=== PATIENT | male | born 1950 | race Caucasian/White ===

== ENCOUNTER 2017-10-22 08:31 | Emergency (ER) | payer MEDICARE, OTHER ==
[~2017-10-22] VITALS: Ht 167.6 cm; Wt 90.7 kg
[~2017-10-22 08:31] MED LIST: AMLO10TA2 PO; ASPI81TA50 PO; CYCL-331 PO; HYDR-2678 PO; HYDR-2762 PO; HYDR-963 PO; HYDR-971 PO; LEVO88TA4 PO; LISI40TA PO; OMEP20TA8 PO; PRAV20TA2 PO; QUET25TA5 PO; RANI150C PO; TRAZ-90 PO
[2017-10-22 08:33] VITALS: BP 165/90
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
[2017-10-22] MEDS ORDERED: CYCL-331 PO (09:40)
== END 2017-10-22 09:57 | disposition home or self-care (01) ==
LOC: ER 08:31
DX: M54.5 Low back pain (principal); G89.29 Other chronic pain; I10 Essential (primary) hypertension; E78.00 Pure hypercholesterolemia, unspecified; E03.9 Hypothyroidism, unspecified; K21.9 Gastro-esophageal reflux disease without esophagitis; F17.200 Nicotine dependence, unspecified, uncomplicated; Z88.6 Allergy status to analgesic agent; Z88.5 Allergy status to narcotic agent; W19.XXXA Unspecified fall, initial encounter; Y93.89 Activity, other specified; Y99.8 Other external cause status; Y92.89 Other specified places as the place of occurrence of the external cause
CPT/HCPCS: 99283

== ENCOUNTER 2018-02-07 18:48 | Emergency (ER) | payer MEDICARE ==
[~2018-02-07] VITALS: Ht 175.3 cm; Wt 90.7 kg
[2018-02-07] MEDS ORDERED: PRED20TA PO (19:45)
--- NOTE | 2018-02-07 19:45 | PHYS DOC ---
Past History Past Medical History: Cancer, Hypertension Past Surgical History: Other Smoking: Less than 1pk/day Alcohol Use: None Drug Use: None Adult General Chief Complaint Chief Complaint: LOWER BACK PAIN OR INJURY HPI HPI Patient is a [age] year old [sex] who presents with [] Review of Systems Review of Systems Constitutional: Denies fever or chills [] Eyes: Denies change in visual acuity, redness, or eye pain [] HENT: Denies nasal congestion or sore throat [] Respiratory: Denies cough or shortness of breath [] Cardiovascular: No additional information not addressed in HPI [] GI: Denies abdominal pain, nausea, vomiting, bloody stools or diarrhea [] : Denies dysuria or hematuria [] Musculoskeletal: Denies back pain or joint pain [] Integument: Denies rash or skin lesions [] Neurologic: Denies headache, focal weakness or sensory changes [] Endocrine: Denies polyuria or polydipsia [] All other systems were reviewed and found to be within normal limits, except as documented in this note. Current Medications Current Medications Current Medications Medications (Trade) Dose Ordered Sig/[facility] Start Time Stop Time Status Last Admin Dose Admin Acetaminophen/ Codeine Phosphate (Starter Pack - Tylenol #3) 1 startpack 1X ONCE 02/07/18 19:45 02/07/18 19:46 UNV Ketorolac Tromethamine (Toradol) 60 mg 1X ONCE 02/07/18 19:45 02/07/18 19:46 UNV Methylprednisolone Sodium Succinate (SOLU-Medrol 125MG VIAL) 125 mg 1X ONCE 02/07/18 19:45 02/07/18 19:46 UNV Allergies Allergies Allergies Coded Allergies Type Severity Reaction Last Updated Verified tramadol Allergy Unknown Nausea 12/20/15 Yes ibuprofen Adverse Reaction Intermediate upset stomach 04/21/15 Yes morphine Adverse Reaction Mild nausea 04/21/15 Yes Physical Exam Physical Exam Constitutional: Well developed, well nourished, no acute distress, non-toxic appearance. [] HENT: Normocephalic, atraumatic, bilateral external ears normal, oropharynx moist, no oral exudates, nose normal. [] Eyes: PERRLA, EOMI, conjunctiva normal, no discharge. [] Neck: Normal range of motion, no tenderness, supple, no stridor. [] Cardiovascular:Heart rate regular rhythm, no murmur [] Lungs & Thorax: Bilateral breath sounds clear to auscultation [] Abdomen: Bowel sounds normal, soft, no tenderness, no masses, no pulsatile masses. [] Skin: Warm, dry, no erythema, no rash. [] Back: No tenderness, no CVA tenderness. [] Extremities: No tenderness, no cyanosis, no clubbing, ROM intact, no edema. [] Neurologic: Alert and oriented X 3, normal motor function, normal sensory function, no focal deficits noted. [] Psychologic: Affect normal, judgement normal, mood normal. [] Current Patient Data Vital Signs Vital Signs Date Time Temp Pulse Resp B/P (MAP) Pulse Ox O2 Delivery O2 Flow Rate FiO2 02/07/18 18:54 86 16 94 Room Air EKG EKG [] Radiology/Procedures Radiology/Procedures [] Course & Med Decision Making Course & Med Decision Making Pertinent Labs and Imaging studies reviewed. (See chart for details) [] Dragon Disclaimer Dragon Disclaimer This electronic medical record was generated, in whole or in part, using a voice recognition dictation system. Departure Departure: Impression: Primary Impression: Back pain Additional Impression: Sciatica Disposition: HOME, SELF-CARE Condition: IMPROVED Referrals: PCP,NO (PCP) Patient Instructions: Back Pain, Adult, Sciatica Additional Instructions: It appears that you're experiencing symptoms of sciatica with your episode of back pain. As we discussed, sciatica is pain in a normal leg as a result of compression on or inflammation of a nerve root in the low back. Take your anti- inflammatory medication as prescribed previously. Use Tylenol 3 one pill every 6 hours as needed for pain unrelieved by the anti-inflammatory. Finish prednisone once a day for 5 days starting tomorrow. Follow-up with your doctor tomorrow and return immediately for new severe or worsening symptoms Scripts Prednisone (PREDNISONE) 20 Mg Tablet 60 MG PO DAILY for 6 Days, #18 TAB Prov: CELY DUMONT MD 02/07/18 Problem Qualifiers CELY DUMONT MD February 07, 2018 19:45
[2018-02-07 19:59] VITALS: BP 143/75
[2018-02-07] MEDS ORDERED: methylPREDNISolone SOD SUCC PF 125 MG/2 ML VIAL. IM ONE (20:00)
[2018-02-07] MEDS ORDERED: KETOROLAC 60 MG/2 ML VIAL. IM ONE (20:00)
[2018-02-07] MEDS ORDERED: ACETAMINOPHEN/CODEINE 300/30MG 4TABLET STARTPACK. PO ONE (20:00)
== END 2018-02-07 20:00 | disposition home or self-care (01) ==
LOC: ER 18:48
DX: M54.40 Lumbago with sciatica, unspecified side (principal); I10 Essential (primary) hypertension; F17.200 Nicotine dependence, unspecified, uncomplicated; Z88.6 Allergy status to analgesic agent; Z88.5 Allergy status to narcotic agent; Z88.8 Allergy status to other drugs, medicaments and biological substances
CPT/HCPCS: 96372; 99284; J1885; J2930

== ENCOUNTER 2018-02-14 12:44 | Emergency (ER) | payer MEDICARE ==
[~2018-02-14] VITALS: Ht 175.3 cm; Wt 94.5 kg
[~2018-02-14 12:44] MED LIST changes: +PRED20TA PO
[2018-02-14 12:48] VITALS: BP 143/75
[2018-02-14] MEDS ORDERED: CYCL-331 PO (13:43)
[2018-02-14] MEDS ORDERED: KETOROLAC 60 MG/2 ML VIAL. IM ONE (13:45)
--- NOTE | 2018-02-14 13:46 | PHYS DOC ---
Past History Past Medical History: Cancer, Hypertension Additional Past Medical Histor: chronic back pain Past Surgical History: Other Smoking: Less than 1pk/day Alcohol Use: None Drug Use: None Adult General Chief Complaint Chief Complaint: BACK INJURY HPI HPI 68-year-old male patient with history of chronic low back pain for more than 10 years and states he has appointment with [facility] tomorrow he mowed his lawn the day before yesterday and since yesterday has bilateral lower back pain with radiation to his time without new focal neuro deficits, nausea or vomiting, abdominal pain, urinary and bowel incontinence, fever and chills. Patient states he doesn't have any pain medication at home and wants some medication until tomorrow. Patient rated his pain 6/10. Review of Systems Review of Systems Constitutional: Denies fever or chills [] Eyes: Denies change in visual acuity, redness, or eye pain [] HENT: Denies nasal congestion or sore throat [] Respiratory: Denies cough or shortness of breath [] Cardiovascular: No additional information not addressed in HPI [] GI: Denies abdominal pain, nausea, vomiting, bloody stools or diarrhea [] : Denies dysuria or hematuria [] Musculoskeletal: Reports back pain Integument: Denies rash or skin lesions [] Neurologic: Denies headache, focal weakness or sensory changes [] Endocrine: Denies polyuria or polydipsia [] All other systems were reviewed and found to be within normal limits, except as documented in this note. Current Medications Current Medications Current Medications Medications (Trade) Dose Ordered Sig/[facility] Start Time Stop Time Status Last Admin Dose Admin Ketorolac Tromethamine (Toradol) 60 mg 1X ONCE 02/14/18 13:30 02/14/18 13:31 UNV Allergies Allergies Allergies Coded Allergies Type Severity Reaction Last Updated Verified tramadol Allergy Unknown Nausea 12/20/15 Yes ibuprofen Adverse Reaction Intermediate upset stomach 04/21/15 Yes morphine Adverse Reaction Mild nausea 04/21/15 Yes Physical Exam Physical Exam Constitutional: Well developed, well nourished, mild distress, non-toxic appearance. [] HENT: Normocephalic, atraumatic Eyes: PERRLA, EOMI, conjunctiva normal, no discharge. [] Neck: Normal range of motion, no tenderness, supple, no stridor. [] Cardiovascular:Heart rate regular rhythm, no murmur [] Lungs & Thorax: Bilateral breath sounds clear to auscultation [] Abdomen: Bowel sounds normal, soft, no tenderness, no masses, no pulsatile masses. [] Skin: Warm, dry, no erythema, no rash. [] Back: No midline tenderness, bilateral lower paraspinal muscle spasm, no CVA tenderness. [] Extremities: No tenderness, no cyanosis, no clubbing, ROM intact, no edema. [] Neurologic: Alert and oriented X 3, normal motor function, normal sensory function, no focal deficits noted. [] Psychologic: Affect normal, judgement normal, mood normal. [] EKG EKG [] Radiology/Procedures Radiology/Procedures [] Course & Med Decision Making Course & Med Decision Making discharge: I've spoken with the patient and/or caregivers. I've explained the patient's condition, diagnosis and treatment plan based on information available to me at this time. I've answered the patient's and/or caregivers questions and addressed any concerns. The patient and/or caregivers have a good understanding the patient's diagnosis, condition and treatment plan as can be expected at this point. Vital signs have been stabilized. The patient's condition is stable for discharge from the emergency department. The patient will pursue further outpatient evaluation with her primary care provider or other designated consulting physician as outlined in the discharge instructions. Patient and/or caregivers are agreeable to this plan of care and follow-up instructions have been explained in detail. The patient and/or caregivers have received these instructions in written format and expressed understanding of these discharge instructions. The patient and her caregivers are aware that if any significant change in condition or worsening of symptoms should prompt him to immediately return to this of the closest emergency department. If an emergent department is not readily available I would encourage him to call 911. Patient left before having throat social without signing AMA form. Patient has frequent emergency room with complaining of different pains. Elieron Disclaimer Elieron Disclaimer This electronic medical record was generated, in whole or in part, using a voice recognition dictation system. Departure Departure: Impression: Primary Impression: Exacerbation of chronic back pain Disposition: HOME, SELF-CARE (At 1350) Condition: STABLE Referrals: PCP,NIVIA (PCP) Patient Instructions: Back Pain, Adult Additional Instructions: Apply ice on the affected area Follow-up with your appointment at [facility] tomorrow Return to ER if not getting better Scripts Cyclobenzaprine Hcl (CYCLOBENZAPRINE HCL) 10 Mg Tablet 1 TAB PO TID, #30 TAB Prov: ERIK RUSSELL MD 02/14/18 ERIK RUSSELL MD February 14, 2018 13:46
== END 2018-02-14 13:51 | disposition home or self-care (01) ==
LOC: ER 12:44
DX: G89.29 Other chronic pain (principal); M54.5 Low back pain; I10 Essential (primary) hypertension; F17.200 Nicotine dependence, unspecified, uncomplicated; Z88.5 Allergy status to narcotic agent; Z88.6 Allergy status to analgesic agent
CPT/HCPCS: 99283

== ENCOUNTER 2018-03-16 20:56 | Emergency (ER) | payer MEDICARE ==
[~2018-03-16] VITALS: Ht 175.3 cm; Wt 94.5 kg
[2018-03-16 20:56] VITALS: BP 159/100
--- NOTE | 2018-03-16 21:19 | PHYS DOC ---
Past History Past Medical History: Cancer, Hypertension Additional Past Medical Histor: chronic back pain Past Surgical History: Other Smoking: Less than 1pk/day Alcohol Use: None Drug Use: None Adult General Chief Complaint Chief Complaint: BACK PAIN - NO INJURY HPI HPI 68-year-old male with history of chronic back pain who says he is slated to have radiofrequency ablation in his low back early in the week at presents here stating he needs some pain medicine to help him sleep tonight. When asked who is primary care physician/pain management physician is he says he doesn't have one. He denies any radicular symptoms.[] Review of Systems Review of Systems Constitutional: Denies fever or chills [] Eyes: Denies change in visual acuity, redness, or eye pain [] HENT: Denies nasal congestion or sore throat [] Respiratory: Denies cough or shortness of breath [] Cardiovascular: No additional information not addressed in HPI [] GI: Denies abdominal pain, nausea, vomiting, bloody stools or diarrhea [] : Denies dysuria or hematuria [] Musculoskeletal: Denies back pain or joint pain [] Integument: Denies rash or skin lesions [] Neurologic: Denies headache, focal weakness or sensory changes [] Endocrine: Denies polyuria or polydipsia [] All other systems were reviewed and found to be within normal limits, except as documented in this note. Allergies Allergies Allergies Coded Allergies Type Severity Reaction Last Updated Verified tramadol Allergy Unknown Nausea 12/20/15 Yes ibuprofen Adverse Reaction Intermediate upset stomach 04/21/15 Yes morphine Adverse Reaction Mild nausea 04/21/15 Yes Physical Exam Physical Exam Constitutional: Well developed, well nourished, no acute distress, non-toxic appearance he ambulated with a cane without difficulty. [] HENT: Normocephalic, atraumatic, bilateral external ears normal, oropharynx moist, no oral exudates, nose normal. [] Eyes: PERRLA, EOMI, conjunctiva normal, no discharge. [] Neck: Normal range of motion, no tenderness, supple, no stridor. [] Back: No tenderness, no CVA tenderness. [] Extremities: No tenderness, no cyanosis, no clubbing, ROM intact, no edema. [] Neurologic: Alert and oriented X 3, normal motor function, normal sensory function, no focal deficits noted. [] Psychologic: Anxious. [] EKG EKG [] Radiology/Procedures Radiology/Procedures [] Course & Med Decision Making Course & Med Decision Making Pertinent Labs and Imaging studies reviewed. (See chart for details) [ED course: Evaluation reveals a 68-year-old male who refused muscle relaxers to help with his back pain and insisting that he needed something stronger to help him sleep. I reminded the patient that I would not prescribe opiates for chronic back pain and he became aggravated and walked out. He did walk out with no difficulty on his own.] Dragon Disclaimer Dragon Disclaimer This electronic medical record was generated, in whole or in part, using a voice recognition dictation system. Departure Departure: Impression: Primary Impression: Chronic back pain Disposition: HOME, SELF-CARE Condition: STABLE Referrals: PCPNIVIA (PCP) Patient Instructions: Chronic Back Pain, Chronic Pain Management Additional Instructions: You'll need to see her primary care physician or ear pain management physician for pain medication. We will not treat chronic pain out of the emergency department with any opioids. Problem Qualifiers Primary Impression: Chronic back pain Back pain location: low back pain Back pain laterality: bilateral Sciatica presence: without sciatica Qualified Codes: M54.5 - Low back pain; G89.29 - Other chronic pain DERECK HOLDER DO Mar 16, 2018 21:18
== END 2018-03-16 21:10 | disposition home or self-care (01) ==
LOC: ER 20:56
DX: G89.29 Other chronic pain (principal); M54.5 Low back pain; I10 Essential (primary) hypertension; F17.200 Nicotine dependence, unspecified, uncomplicated; Z88.6 Allergy status to analgesic agent; Z88.5 Allergy status to narcotic agent
CPT/HCPCS: 99281